=== PATIENT | male | born 1990 | race Caucasian/White ===

== ENCOUNTER 2016-12-03 12:15 | Emergency (ER) | payer SELFPAY ==
[~2016-12-03] VITALS: Ht 180.3 cm; Wt 77.0 kg
[2016-12-03 12:19] VITALS: Ht 180.3 cm; Wt 77.0 kg
[2016-12-03] MEDS ORDERED: HYDROCODONE/APAP (5/325) TAB PO ONE (13:30)
[2016-12-03] MEDS ORDERED: IBUPROFEN 600 MG TAB PO ONE (13:30)
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
[2016-12-03] MEDS ORDERED: IBUP-1542 PO (15:33)
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
== END 2016-12-03 16:22 | disposition home or self-care (01) ==
LOC: FTE 12:15
DX: S30.1XXA Contusion of abdominal wall, initial encounter (principal); S63.502A Unspecified sprain of left wrist, initial encounter; R07.89 Other chest pain; V49.50XA Passenger injured in collision with unspecified motor vehicles in traffic accident, initial encounter
CPT/HCPCS: 71010; 72040